=== PATIENT | female | born 1945 | race Hispanic/Latino ===

== ENCOUNTER 2018-07-29 10:28 | Emergency (ER) | payer MEDICARE ==
[~2018-07-29] VITALS: Ht 154.9 cm; Wt 111.6 kg
--- NOTE | 2018-07-29 11:16 | Diagnostic Imaging Report ---
EXAMINATION: Portable Right/left shoulder internal and external rotation views. CLINICAL HISTORY: Soft tissue swelling in scapular area. COMPARISON: None. . Discussion: Exam limited by soft tissue attenuation from patient's body habitus. Mild generalized osteopenia. No acute, displaced fracture or dislocation. Degenerative changes in the glenohumeral and acromioclavicular joints. No acromioclavicular separation. Soft tissues are grossly unremarkable. IMPRESSION: 1. Exam limited by soft tissue attenuation from patient's body habitus. 2. No acute, displaced fracture or dislocation. Signed by: Dr. David Carter M.D. on 07/29/2018 11:13 AM
[2018-07-29] MEDS ORDERED: LIDOCAINE HCL 1% LOCAL INJ 20 ML VIAL INJ ONE (13:30)
[2018-07-29] MEDS ORDERED: CLINDAMYCIN HC300 MG PO (13:33)
[2018-07-29] MEDS ORDERED: CLINDAMYCIN HCL 150 MG CAP PO ONE (14:15)
[2018-07-29] MEDS ORDERED: ULTRAM50 MG PO (14:27)
[2018-07-29 14:33] VITALS: BP 136/78
== END 2018-07-29 14:32 | disposition home or self-care (01) ==
LOC: ER 10:28
DX: L02.414 Cutaneous abscess of left upper limb (principal); I10 Essential (primary) hypertension; E11.9 Type 2 diabetes mellitus without complications; E03.9 Hypothyroidism, unspecified; E78.5 Hyperlipidemia, unspecified
CPT/HCPCS: 99283